=== PATIENT | female | born 1990 | race Caucasian/White ===

== ENCOUNTER 2024-01-21 10:04 | Outpatient (CLI) | payer OTHER, SELFPAY ==
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
--- OUTSIDE RECORDS SUMMARY | 2024-01-22 05:31 | XMS_ITS | Referral Summary ---
Author Organization [facility] [facility] Address [address] [place] [address] Care Team Providers Care Truck Driver Teamster Name Role Phone No Ref-Primary, Physician Primary Care Provider Allergies Active Allergy Reactions Criticality Noted Date Comments Cefaclor Hives High 08/09/2016 Vancomycin Unknown 07/31/2018 Required benadryl, epi and solumedrol in the ED. Medications Medication Sig Dispensed Refills Start Date End Date Status venlafaxine (EFFEXOR XR) 75 MG 24 hr capsule Take 75 mg by mouth 06/30/2021 Active Acetaminophen-guaiFE Nesin (MUCINEX COLD & FLU PO) Active guaiFENesin-codeine (ROBITUSSIN AC) 100-10 MG/5ML solution Take 10 mLs by mouth 05/20/2022 Active nitroFURantoin macrocrystal-monohyd rate (MACROBID) 100 MG capsuleIndications:A cute cystitis without hematuria Take 1 capsule (100 mg) by mouth 2 times daily 10 capsule 06/24/2022 Active Active Problems Problem Noted Date Diagnosed Date History of gestational diabetes 06/29/2021 Tachycardia 04/20/2021 Colitis 07/30/2018 Severe episode of recurrent major depressive disorder, without psychotic features 10/16/2017 Tendonitis 08/31/2017 Depression with anxiety 07/28/2017 Social History Tobacco Use Types Packs/Day Years Used Date Smoking Tobacco: Never Smokeless Tobacco: Never Tobacco Cessation:Counseling Given: Not Answered Adolescent Education Answer Date Record ed Getting School Help Needed Not on file 02/25 Sex and Gender Information Value Date Recorded Sex Assigned at Not on file Gender Identity Not on file Sexual Orientation Not on file Last Filed Vital Signs Vital Sign Reading Time Taken Comments Blood Pressure 106/69 06/24/2022 2:32 PM REGISTERED APPRAISER Pulse 116 06/24/2022 2:32 PM REGISTERED APPRAISER Temperature 36.9 ??C (98.4 ??F) 06/24/2022 2:32 PM CS T Respiratory Rate 12 06/24/2022 2:32 PM REGISTERED APPRAISER Oxygen Saturation 95% 06/24/2022 2:32 PM REGISTERED APPRAISER Inhaled Oxygen Concentration - - Weight - - Height - - Body Mass Index - - Plan of Treatment Not on file Care Teams Truck Driver Teamster Relationship Specialty Start Date End Date No Ref-Primary, Physician PCP - General 05/27/22
--- OUTSIDE RECORDS SUMMARY | 2024-01-22 05:31 | XMS_ITS | Clinical Summary ---
Author Organization [facility] Address [address] [place] [id number] Care Team Providers Care Fabrication Mig Welder Name Role Phone No Ref-Primary, Physician Primary [...] Comments Blood Pressure 106/69 06/24/2022 2:32 PM LOADING UNIT OPERATOR SEATING Pulse 116 06/24/2022 2:32 PM LOADING UNIT OPERATOR SEATING Temperature 36.9 ??C (98.4 ??F) 06/24/2022 2:32 PM CS T Respiratory Rate 12 06/24/2022 2:32 PM LOADING UNIT OPERATOR SEATING Oxygen Saturation 95% 06/24/2022 2:32 PM LOADING UNIT OPERATOR SEATING Inhaled Oxygen Concentration - - Weight - - Height - - Body Mass Index - - Plan of Treatment Health Maintenance Due Date Last Done Comments ADVANCE CARE PLANNING 1992 ANNUAL REVIEW OF HM ORDERS 1992 DEPRESSION ACTION PLAN 1992 PHQ-9 1992 YEARLY PREVENTIVE VISIT 1992 HIV SCREENING 11/21/2007 HEPATITIS C SCREENING 2010 PAP 2013 HEPATITIS B IMMUNIZATION (3 of 3 - 19+ 3-dose series) 12/24/2014 10/29/2014, 12/04/2013 HPV IMMUNIZATION (2 - 3-dose series) 01/12/2018 12/15/2017 COVID-19 Vaccine ( season) 2023 04/17/2021, 08/19/2020, 07/29/2020 INFLUENZA VACCINE (#1) 2024 7, 03/12/2017, 04/14/2016, Additional history exists DTAP/TDAP/TD IMMUNIZATION (3 - Td or Tdap) 05/05/2031 05/05/2021, 10/29/2014 Pneumococcal Vaccine: Pediatrics (0 to 5 Years) and At-Risk Patients (6 to 64 Years) Aged Out 04/17/2000 No longer eligible based on patient's age to complete this topic MENINGITIS IMMUNIZATION Aged Out 02/15/2013 No l onger eligible based on patient's age to complete this topic IPV IMMUNIZATION Aged Out No longer e ligible based on patient's age to complete this topic RSV MONOCLONAL ANTIBODY Aged Out No l onger eligible based on patient's age to complete this topic Care Teams Fabrication Mig Welder Relationship Specialty Start Date End Date No Ref-Primary, Physician PCP - General 05/27/22
== END 2024-01-21 10:05 | disposition home or self-care (01) ==
LOC: AMB 01-22 05:28
PROVIDERS: Visit Provider Emergency Medicine Emergency Medical Services
DX: S09.90XA Unspecified injury of head, initial encounter (principal); V43.51XA Car driver injured in collision with sport utility vehicle in traffic accident, initial encounter; Y92.410 Unspecified street and highway as the place of occurrence of the external cause
CPT/HCPCS: A0998